=== PATIENT | female | born 1965 | race Two or more races ===

== ENCOUNTER 2018-01-07 07:02 | Outpatient (CLI) | payer OTHER ==
[~2018-01-07 07:02] MED LIST: FLEXERIL PO; FLONASE16 GM NS; GILTUSS TR TAB1 EACH PO; LIPITOR20 MG PO; MAXITROL EYE DRO5 ML OP; NAPR500T14 PO; SEPTRA DS TABLE1 TAB PO; VOLTAREM 50 MG PO; ZITHROMAX TRI-500 MG PO; ZYRTEC10 MG PO
== END 2018-01-07 07:10 | disposition home or self-care (01) ==
LOC: LAB 07:02
DX: M25.50 Pain in unspecified joint (principal); I10 Essential (primary) hypertension; R53.1 Weakness

== ENCOUNTER → 2018-01-15 07:07 | Outpatient (CLI) | payer OTHER | END | disposition home or self-care (01) | LOC: LAB 07:07 | DX: M06.9 Rheumatoid arthritis, unspecified (principal); M32.19 Other organ or system involvement in systemic lupus erythematosus; D68.61 Antiphospholipid syndrome; M35.00 Sjogren syndrome, unspecified; E06.3 Autoimmune thyroiditis; N39.0 Urinary tract infection, site not specified; E03.8 Other specified hypothyroidism ==

== ENCOUNTER → 2018-01-17 | Outpatient (CLI) | payer OTHER | END | disposition home or self-care (01) | LOC: SONOGRAMA 14:19 | DX: E03.8 Other specified hypothyroidism (principal) ==

== ENCOUNTER 2018-02-05 09:46 | Outpatient (CLI) | payer OTHER | END 2018-02-05 10:05 | disposition home or self-care (01) | LOC: SONOGRAMA 09:46 | DX: E04.1 Nontoxic single thyroid nodule (principal) ==

== ENCOUNTER → 2018-02-26 12:29 | Outpatient (CLI) | payer OTHER | END | disposition home or self-care (01) | LOC: LAB 12:29 | DX: N39.0 Urinary tract infection, site not specified (principal) ==

== ENCOUNTER 2018-02-26 13:19 | Outpatient (CLI) | payer OTHER | END 2018-02-26 13:21 | disposition home or self-care (01) | LOC: MAMO-SONO 13:19 | DX: Z12.31 Encounter for screening mammogram for malignant neoplasm of breast (principal) ==

== ENCOUNTER 2018-03-25 07:56 | Outpatient (CLI) | payer OTHER | END 2018-03-25 08:03 | disposition home or self-care (01) | LOC: LAB 07:56 | DX: M06.89 Other specified rheumatoid arthritis, multiple sites (principal) ==

== ENCOUNTER 2018-03-26 09:47 | Outpatient (CLI) | payer OTHER | END 2018-03-26 09:57 | disposition home or self-care (01) | LOC: NUCLEAR 09:47 | DX: M25.50 Pain in unspecified joint (principal) | CPT/HCPCS: 78306; A9503 ==

== ENCOUNTER 2018-07-11 05:39 | Emergency (ER) | payer OTHER ==
[~2018-07-11] VITALS: Ht 154.9 cm; Wt 81.6 kg
[2018-07-11] MEDS ORDERED: MEDROLPACK (05:57)
== END 2018-07-11 13:45 | disposition home or self-care (01) ==
LOC: ER 05:39
DX: K52.9 Noninfective gastroenteritis and colitis, unspecified (principal); N39.0 Urinary tract infection, site not specified

== ENCOUNTER 2018-08-14 11:11 | Outpatient (CLI) | payer OTHER ==
[~2018-08-14 11:11] MED LIST changes: +MEDROLPACK
== END 2018-08-14 11:23 | disposition home or self-care (01) ==
LOC: SONOGRAMA 11:11 → MAMO-SONO 11:15 → SONOGRAMA 11:23
DX: R10.31 Right lower quadrant pain (principal); R10.32 Left lower quadrant pain

== ENCOUNTER 2018-08-20 17:08 | Outpatient (CLI) | payer OTHER | END 2018-08-20 17:22 | disposition home or self-care (01) | LOC: LAB 17:08 | DX: Z11.3 Encounter for screening for infections with a predominantly sexual mode of transmission (principal) ==

== ENCOUNTER 2018-11-26 14:35 | Outpatient (CLI) | payer OTHER | END 2018-11-26 16:19 | disposition home or self-care (01) | LOC: RAD 14:35 | DX: M17.0 Bilateral primary osteoarthritis of knee (principal); M22.2X1 Patellofemoral disorders, right knee; M22.2X2 Patellofemoral disorders, left knee; M19.041 Primary osteoarthritis, right hand; M19.042 Primary osteoarthritis, left hand ==

== ENCOUNTER → 2018-12-23 07:51 | Outpatient (CLI) | payer OTHER | END | disposition home or self-care (01) | LOC: LAB 07:51 | DX: M06.89 Other specified rheumatoid arthritis, multiple sites (principal); M32.19 Other organ or system involvement in systemic lupus erythematosus; D68.61 Antiphospholipid syndrome; M35.00 Sjogren syndrome, unspecified ==

== ENCOUNTER → 2019-01-14 | Outpatient (CLI) | payer OTHER | END | disposition home or self-care (01) | LOC: LAB 14:42 | DX: E03.8 Other specified hypothyroidism (principal); M33.12 Other dermatomyositis with myopathy; C90.00 Multiple myeloma not having achieved remission; I25.10 Atherosclerotic heart disease of native coronary artery without angina pectoris ==

== ENCOUNTER 2019-01-15 14:55 | Outpatient (CLI) | payer OTHER | END 2019-01-15 15:08 | disposition home or self-care (01) | LOC: SONOGRAMA 14:55 | DX: M65.811 Other synovitis and tenosynovitis, right shoulder (principal); M65.812 Other synovitis and tenosynovitis, left shoulder ==

== ENCOUNTER 2019-04-01 06:39 | Outpatient (CLI) | payer OTHER | END 2019-04-01 06:45 | disposition home or self-care (01) | LOC: LAB 06:39 | DX: D47.2 Monoclonal gammopathy (principal); C90.00 Multiple myeloma not having achieved remission; M05.79 Rheumatoid arthritis with rheumatoid factor of multiple sites without organ or systems involvement ==

== ENCOUNTER 2019-06-19 09:24 | Outpatient (CLI) | payer OTHER | END 2019-06-19 09:33 | disposition home or self-care (01) | LOC: LAB 09:24 | DX: D89.0 Polyclonal hypergammaglobulinemia (principal) ==

== ENCOUNTER 2020-03-18 | Outpatient (CLI) | payer OTHER | END 2020-03-18 00:01 | disposition home or self-care (01) | LOC: PPH VACUNA | DX: Z23 Encounter for immunization (principal) ==

== ENCOUNTER → 2020-04-07 07:19 | Outpatient (CLI) | payer OTHER | END | disposition home or self-care (01) | LOC: LAB 07:19 | PROVIDERS: ATTEND Internal Medicine Hematology & Oncology | DX: D47.2 Monoclonal gammopathy (principal) ==

== ENCOUNTER → 2020-04-12 15:32 | Outpatient (CLI) | payer OTHER | END | disposition home or self-care (01) | LOC: LAB 15:32 | PROVIDERS: ATTEND Physical Medicine & Rehabilitation | DX: Z20.828 Contact with and (suspected) exposure to other viral communicable diseases (principal); Z11.59 Encounter for screening for other viral diseases ==

== ENCOUNTER 2020-06-14 11:09 | Outpatient (CLI) | payer OTHER | END 2020-06-14 11:34 | disposition home or self-care (01) | LOC: LAB 11:09 | DX: Z20.828 Contact with and (suspected) exposure to other viral communicable diseases (principal); Z11.59 Encounter for screening for other viral diseases ==

== ENCOUNTER 2020-09-27 07:19 | Outpatient (CLI) | payer OTHER ==
[~2020-09-27 07:19] MED LIST changes: +SULINDAC200 MG PO
== END 2020-09-27 07:20 | disposition home or self-care (01) ==
LOC: LAB 07:19
PROVIDERS: ATTEND Internal Medicine Cardiovascular Disease
DX: I10 Essential (primary) hypertension (principal); E11.9 Type 2 diabetes mellitus without complications

== ENCOUNTER 2020-10-05 12:27 | Outpatient (CLI) | payer OTHER | END 2020-10-05 12:55 | disposition home or self-care (01) | LOC: NUCLEAR 12:27 | PROVIDERS: ATTEND Internal Medicine Cardiovascular Disease | DX: M81.0 Age-related osteoporosis without current pathological fracture (principal); E55.9 Vitamin D deficiency, unspecified ==

== ENCOUNTER 2020-10-20 10:59 | Outpatient (CLI) | payer OTHER | END 2020-10-20 14:04 | disposition home or self-care (01) | LOC: MAMO-SONO 10:59 | PROVIDERS: ATTEND Internal Medicine Cardiovascular Disease | DX: N63.11 Unspecified lump in the right breast, upper outer quadrant (principal) ==

== ENCOUNTER 2021-03-25 15:30 | Outpatient (CLI) | payer OTHER | END 2021-03-25 15:35 | disposition home or self-care (01) | LOC: PPH VACUNA 15:30 | PROVIDERS: ATTEND Emergency Medicine Pediatric Emergency Medicine | DX: Z23 Encounter for immunization (principal) ==

== ENCOUNTER 2021-12-28 08:50 | Outpatient (CLI) | payer OTHER | END 2021-12-28 12:22 | disposition home or self-care (01) | LOC: LAB 08:50 | DX: M06.9 Rheumatoid arthritis, unspecified (principal); M32.19 Other organ or system involvement in systemic lupus erythematosus; I25.10 Atherosclerotic heart disease of native coronary artery without angina pectoris ==

== ENCOUNTER 2022-03-15 15:30 | Outpatient (CLI) | payer OTHER | END 2022-03-15 15:35 | disposition home or self-care (01) | LOC: PPH VACUNA 15:30 | PROVIDERS: ATTEND Emergency Medicine Pediatric Emergency Medicine | DX: Z23 Encounter for immunization (principal) ==

== ENCOUNTER 2022-06-09 15:23 | Outpatient (CLI) | payer OTHER | END 2022-06-09 15:31 | disposition home or self-care (01) | LOC: RAD 15:23 | PROVIDERS: ATTEND Physical Medicine & Rehabilitation | DX: M17.0 Bilateral primary osteoarthritis of knee (principal) ==

== ENCOUNTER 2023-08-28 10:43 | Outpatient (CLI) | payer OTHER ==
[~2023-08-28 10:43] MED LIST changes: +INDOMETHACIN50 MG PO; +NORFLEX100MG PO; +VOLTAREN ARTHRI20 GM TOP
== END 2023-08-28 10:53 | disposition home or self-care (01) ==
LOC: PPH VACUNA 10:43
PROVIDERS: ATTEND Emergency Medicine Pediatric Emergency Medicine
DX: Z23 Encounter for immunization (principal)

== ENCOUNTER 2024-05-27 13:04 | Outpatient (CLI) | payer OTHER | END 2024-05-27 13:13 | disposition home or self-care (01) | LOC: SONOGRAMA 13:04 | PROVIDERS: ATTEND Surgery | DX: N60.11 Diffuse cystic mastopathy of right breast (principal); N60.12 Diffuse cystic mastopathy of left breast ==

== ENCOUNTER 2024-09-17 13:13 | Outpatient (CLI) | payer OTHER ==
[~2024-09-17 13:13] MED LIST changes: +METHOCARBAMOL750 MG PO
== END 2024-09-17 13:17 | disposition home or self-care (01) ==
LOC: SONOGRAMA 13:13
DX: M25.511 Pain in right shoulder (principal)

== ENCOUNTER 2025-02-05 17:05 | Emergency (ER) | payer OTHER ==
[~2025-02-05] VITALS: Ht 154.9 cm; Wt 77.1 kg
[2025-02-05 17:20] VITALS: O2SAT 98
[2025-02-05] MEDS ORDERED: NIFEDIPINE 10 MG CAPSULE PO STA (17:52)
[2025-02-05 18:30] LABS: BASO % 0.6 % (0.1-1.2); EOS # 0.03 (0.04-0.54); EOS % 0.6 % (0.7-7.0); LYMPH # 1.50 (1.18-3.74); LYMPH % 31.7 % (19.3-53.1); MEAN PLATELET VOLUME 10.30 fl (9.4-12.4); MONO # 0.50 (0.24-0.82); MONO % 10.6 % (4.7-12.5); NEUT # 2.66 (1.56-6.13); NEUT % 56.3 % (34.0-71.1); RED CELL DISTRIBUTION WIDTH 14.2 % (11.6-14.4)
[2025-02-05 18:53] LABS: ALT/SGPT 22.0 U/L (12-78); AST/SGOT 18.0 U/L (15-37); BILIRUBIN TOTAL 0.42 mg/dL (0.3-1.2); BUN CREA RATIO 17.0 (7.0-25.0); CREATININE SERUM 0.76 mg/dL (0.55-1.02); GFR 77.37; GLOBULINA 4.7 G/DL (2.4-3.5); GLUCOSE FASTING 92.0 mg/dL (65-100); OSMOLALITY SERUM 285.0 MOSM/KG (275-295)
[2025-02-05 19:50] VITALS: BP 140/95
== END 2025-02-05 20:06 | disposition home or self-care (01) ==
LOC: ER 17:11
PROVIDERS: General Practice
DX: I10 Essential (primary) hypertension (principal)

== ENCOUNTER → 2025-05-18 07:37 | Outpatient (CLI) | payer OTHER ==
[2025-05-18 09:14] LABS: BASO % 0.6 % (0.1-1.2); EOS # 0.08 (0.04-0.54); EOS % 1.5 % (0.7-7.0); LYMPH # 1.43 (1.18-3.74); LYMPH % 27.6 % (19.3-53.1); MEAN PLATELET VOLUME 10.20 fl (9.4-12.4); MONO # 0.60 (0.24-0.82); MONO % 11.6 % (4.7-12.5); NEUT # 3.03 (1.56-6.13); NEUT % 58.3 % (34.0-71.1); RED CELL DISTRIBUTION WIDTH 13.5 % (11.6-14.4)
[2025-05-18 09:22] LABS: URINE APPEARANCE Clear; URINE BILIRRUBIN Negative (NEGATIVE); URINE BLOOD Negative; URINE COLOR Yellow; URINE GLUCOSE Negative (NEGATIVE); URINE KETONE Negative (NEGATIVE); URINE LEUKOCYTE Negative; URINE NITRATE Negative; URINE PROTEIN Negative (NEGATIVE); URINE UROBILINOGEN 0.2 E.U./dl
[2025-05-18 09:23] LABS: URINE EPITHELIAL CELLS 4.6 uL (0.0-38.8); URINE RBC 2.1 uL (0.0-20.8); URINE WBC 2.0 uL (0.0-23.2)
[2025-05-18 09:27] LABS: URINE BACTERIA 3.5 uL (0.0-1933); URINE CAST 0.14 uL (0.0-1.40)
[2025-05-18 10:36] LABS: ALT/SGPT 20.0 U/L (12-78); AST/SGOT 19.0 U/L (15-37); BILIRUBIN TOTAL 0.47 mg/dL (0.3-1.2); BUN CREA RATIO 21.0 (7.0-25.0); CHOL HDL RATIO 5.6 (0-5.0); CREATININE SERUM 0.72 mg/dL (0.55-1.02); FREE TRIODOTIRONINE 2.64 pg/ml (2.18-3.98); GFR 82.35; GLOBULINA 4.3 G/DL (2.4-3.5); GLUCOSE FASTING 88.0 mg/dL (65-100); HDL 37.0 mg/dl (40-60); LDL 135.0 mg/dl (0-130); OSMOLALITY SERUM 285.0 MOSM/KG (275-295); T4 TOTAL 10.05 UG/DL (4.8-13.9); TSH 3.34 uIU/mL (0.358-3.74); VLDL 34.0 (0-39)
== END | disposition home or self-care (01) ==
LOC: LAB 07:37
PROVIDERS: ATTEND Internal Medicine
DX: E55.9 Vitamin D deficiency, unspecified (principal); M13.819 Other specified arthritis, unspecified shoulder; I11.9 Hypertensive heart disease without heart failure; R73.9 Hyperglycemia, unspecified; Z13.29 Encounter for screening for other suspected endocrine disorder; R19.5 Other fecal abnormalities

== ENCOUNTER 2025-05-29 14:27 | Outpatient (CLI) | payer OTHER ==
[2025-05-29 15:34] LABS: ob NEGATIVE (NEGATIVE)
== END 2025-05-29 14:29 | disposition home or self-care (01) ==
LOC: LAB 14:27
PROVIDERS: ATTEND Internal Medicine
DX: E55.9 Vitamin D deficiency, unspecified (principal); M13.819 Other specified arthritis, unspecified shoulder; I11.9 Hypertensive heart disease without heart failure; R73.9 Hyperglycemia, unspecified; Z13.29 Encounter for screening for other suspected endocrine disorder; R19.5 Other fecal abnormalities

== ENCOUNTER 2025-06-10 08:34 | Outpatient (CLI) | payer OTHER | END 2025-06-10 08:35 | disposition home or self-care (01) | LOC: SONOGRAMA 08:34 | PROVIDERS: ATTEND Internal Medicine | DX: M06.9 Rheumatoid arthritis, unspecified (principal) ==

== ENCOUNTER 2025-06-10 10:06 | Outpatient (CLI) | payer OTHER | END 2025-06-10 10:07 | disposition home or self-care (01) | LOC: NUCLEAR 10:06 | PROVIDERS: ATTEND Internal Medicine | DX: I11.9 Hypertensive heart disease without heart failure (principal) ==

== ENCOUNTER 2025-06-10 19:39 | Emergency (ER) | payer OTHER ==
[~2025-06-10] VITALS: Ht 154.9 cm; Wt 102.1 kg
[2025-06-10] MEDS ORDERED: FAMOTIDINE/PF 20 MG/2 ML VIAL IV ONE (20:15)
[2025-06-10] MEDS ORDERED: ONDANSETRON HCL 2 MG/ML VIAL IV ONE (20:15)
[2025-06-10] MEDS ORDERED: FAMOTIDINE/PF 20 MG/2 ML VIAL ONE (20:43)
[2025-06-10] MEDS ORDERED: ONDANSETRON HCL 2 MG/ML VIAL ONE (20:43)
[2025-06-10 20:49] LABS: BASO % 0.2 % (0.1-1.2); EOS # 0.05 (0.04-0.54); EOS % 1.2 % (0.7-7.0); LYMPH # 1.15 (1.18-3.74); LYMPH % 26.5 % (19.3-53.1); MEAN PLATELET VOLUME 10.00 fl (9.4-12.4); MONO # 0.35 (0.24-0.82); MONO % 8.1 % (4.7-12.5); NEUT # 2.76 (1.56-6.13); NEUT % 63.5 % (34.0-71.1); RED CELL DISTRIBUTION WIDTH 13.8 % (11.6-14.4)
[2025-06-10] MEDS ORDERED: ENALAPRILAT DIHYDRATE 2.5 MG/2 ML VIAL IV ONE (21:30)
[2025-06-10 21:45] LABS: ALT/SGPT 20 U/L (12-78); AST/SGOT 18 U/L (15-37); BILIRUBIN TOTAL 0.45 mg/dL (0.3-1.2); BUN CREA RATIO 18 (7.0-25.0); CREATININE SERUM 0.85 mg/dL (0.55-1.02); GFR 67.99; GLOBULINA 5.1 G/DL (2.4-3.5); GLUCOSE FASTING 153 mg/dL (65-100); OSMOLALITY SERUM 285 MOSM/KG (275-295)
[2025-06-10 22:05] LABS: CKMB < 1.0 NG/ML (0.5-3.6)
[2025-06-10] MEDS ORDERED: ENALAPRILAT DIHYDRATE 1.25 MG/ML VIAL IV ONE (22:14)
[2025-06-10 23:44] LABS: COVID-19 AG NEGATIVE (NEGATIVE)
== END 2025-06-11 01:42 | disposition home or self-care (01) ==
LOC: ER 19:39
PROVIDERS: Student in an Organized Health Care Education/Training Program
DX: I99.8 Other disorder of circulatory system (principal); I16.9 Hypertensive crisis, unspecified; I10 Essential (primary) hypertension; R42 Dizziness and giddiness; R11.0 Nausea; R10.13 Epigastric pain; Z20.822 Contact with and (suspected) exposure to COVID-19